=== PATIENT | female | born 1985 | race Caucasian/White ===

== ENCOUNTER 2018-02-07 09:08 | Inpatient (IN) | payer OTHER ==
[~2018-02-07] VITALS: Ht 172.7 cm; Wt 91.8 kg
[2018-02-07] VITALS (21 sets, daily range): BP systolic 78–159; BP diastolic 43–108; PULSE 77–111; TEMP 98.1–98.2
[~2018-02-07 09:08] MED LIST: COLACE 100100 MG/CAP PO; EQUALINE PRENATAL; IBU600 MG PO; PERCOCET 325 MG1 TA2 PO
[2018-02-07 10:49] LABS: BASO % 0.1 % (0.0-2.0); EOS % 0.4 % (0-4.0); GRAN # 5.6 (1.4-6.5); GRAN % 70.5 % (42.2-75.2); HEMOGLOBIN 12.1 g/dl (12.5-16.0); LYMPH # 1.7 (1.2-3.4); LYMPH % 21.1 % (20.0-51.0); MEAN CELL VOLUME 83 fl (80.0-100.0); MEAN CORPUSCULAR HEMOGLOBIN 28 pg (27.0-31.0); MEAN CORPUSCULAR HGB CONC 33 g/dl (33.0-37.0); MONO # 0.6 (0.1-0.6); MONO % 7.3 % (1.7-9.3); PLATELET COUNT 176 K/mm3 (130-400); RED BLOOD COUNT 4.38 M/mm3 (4.10-5.30); REDCELL DISTRIBUTION WIDTH-CV 12.6 % (11.5-14.5)
[2018-02-07 10:52] LABS: HEMATOCRIT 36.5 % (37.0-47.0)
[2018-02-08 02:20] VITALS: BP 104/55; PULSE 92; TEMP 97.8
[2018-02-08 07:03] LABS: HEMOGLOBIN 11.1 g/dl (12.5-16.0)
[2018-02-08 07:05] LABS: HEMATOCRIT 33.8 % (37.0-47.0)
[2018-02-08 07:30] VITALS: BP 107/68; PULSE 81; TEMP 98.5
[2018-02-08 16:21] VITALS: BP 96/61; PULSE 72; TEMP 98.3
[2018-02-08 20:15] VITALS: BP 103/65; PULSE 97; TEMP 97.8
[2018-02-09 08:28] VITALS: BP 121/79; PULSE 88; TEMP 97.9
[2018-02-09] MEDS ORDERED: MOTRIN 600600 MG/TAB PO (10:02)
[2018-02-09] MEDS ORDERED: SENOKOT S 50 MG1 TAB PO (10:03)
[2018-02-09] MEDS ORDERED: PERCOCET 325 MG1 TA2 PO (10:03)
== END 2018-02-09 10:45 | disposition home or self-care (01) | DRG 768 ==
LOC: OB 09:08 → LDR 20:21 → OB 02-09 10:45
PROVIDERS: Obstetrics & Gynecology
PROC: 10E0XZZ Delivery of Products of Conception, External Approach (ICD-10-PCS; principal; 2018-02-07)
PROC: 0DQR0ZZ Repair Anal Sphincter, Open Approach (ICD-10-PCS; 2018-02-07)
PROC: 0UQGXZZ Repair Vagina, External Approach (ICD-10-PCS; 2018-02-07)
DX: O34.219 Maternal care for unspecified type scar from previous cesarean delivery (principal); Z37.0 Single live birth; O70.20 Third degree perineal laceration during delivery, unspecified; Z3A.40 40 weeks gestation of pregnancy
CPT/HCPCS: J0690; J0698; J1885; J2370; J2590; J7120

== ENCOUNTER → 2019-09-24 | Outpatient (CLI) | payer OTHER ==
[~2019-09-24] MED LIST changes: +MOTRIN 600600 MG/TAB PO; +SENOKOT S 50 MG1 TAB PO
== END ==
LOC: ZCOL.LAB 17:54
DX: Z20.828 Contact with and (suspected) exposure to other viral communicable diseases (principal)